=== PATIENT | female | born 1995 | race African-American/Black ===

== ENCOUNTER 2024-12-11 01:20 | Emergency (ER) | payer OTHER, MEDICAID ==
[~2024-12-11] VITALS: Ht 170.2 cm; Wt 96.0 kg
[2024-12-11 01:22] VITALS: O2SAT 99
[2024-12-11] MEDS: ONDANSETRON HCL 4MG/2ML INJ IV ONE (03:04)
[2024-12-11] MEDS: MORPHINE SULFATE 4 MG/ML INJ (FOR IV/IM USE) IV ONE (03:05)
[2024-12-11] MEDS: SODIUM CHLORIDE 0.9% 1,000 ML IV ONE (03:09)
[2024-12-11 03:14] LABS: BASOPHILS % 0.6 % (0.0-2.0); EOSINOPHILS % 0.5 % (0.0-5.0); HEMATOCRIT. 25.9 % (36.0-48.0); HEMOGLOBIN. 8.9 g/dL (12.0-16.0); LYMPHOCYTES % 19.6 % (20.0-50.0); MEAN PLATELET VOLUME 7.1 fl (7.4-10.4); MONOCYTES % 6.3 % (2.0-8.0); NEUTROPHILS % 73.0 % (40.0-76.0); PLATELET 249 x1000/uL (130-400); RED BLOOD CELL COUNT 2.74 mill/uL (4.2-5.4); RED CELL DISTRIBUTION WIDTH 13.8 % (11.6-14.6)
[2024-12-11] MEDS: ACETAMINOPHEN 1000MG/100ML 100 ML IV ONE (03:16)
[2024-12-11 03:19] LABS: CREATININE 0.5 mg/dL (0.6-1.0); UREA NITROGEN BLOOD 7 mg/dL (9-23)
[2024-12-11 03:20] LABS: ETHANOL BLOOD 73 mg/dL (<10)
[2024-12-11 03:21] LABS: ASPARTATE AMINOTRANSFERASE 23 IU/L (<34); BILIRUBIN DIRECT < 0.1 mg/dL (<=3.0); BILIRUBIN TOTAL 0.3 mg/dL (0.1-1.0); PROTEIN TOTAL 6.4 g/dL (6.0-8.3)
[2024-12-11 05:13] VITALS: TEMP 36.7
[2024-12-11 05:18] LABS: INR 1.0
[2024-12-11] MEDS ORDERED: ACET-2708 MT (05:38)
[2024-12-11] MEDS ORDERED: METO-293 MT (05:38)
[2024-12-11 05:54] VITALS: BP 98/61; PULSE 66; RESP 15; O2SAT 100
[2024-12-11] MEDS ORDERED: IOHEXOL-300 100 ML BOTTLE ONE (07:00)
== END 2024-12-11 06:01 | disposition home or self-care (01) ==
LOC: ER 01:20 → CMPBEDREQ 13:09
DX: S09.90XA Unspecified injury of head, initial encounter (principal); S80.02XA Contusion of left knee, initial encounter; S80.01XA Contusion of right knee, initial encounter; F12.90 Cannabis use, unspecified, uncomplicated; R10.30 Lower abdominal pain, unspecified; V49.40XA Driver injured in collision with unspecified motor vehicles in traffic accident, initial encounter; Y92.410 Unspecified street and highway as the place of occurrence of the external cause; Y93.89 Activity, other specified; Y99.8 Other external cause status
CPT/HCPCS: 80076; 80048; 80320; 85025; 85610; 85730; 86850; 86900; 86901; 36415; 73560; 73030; 73620; 70450; 71250; 74177; 96365; 96372; 96375; 99285; Q9967; J2405; J2270; J7030; Z7610; G0480; J0131